=== PATIENT | female | born 1950 | race Two or more races ===

== ENCOUNTER 2021-06-26 07:45 | Outpatient (CLI) | payer MEDICARE ==
[2021-07-01] MEDS ORDERED: ASPI-992 PO (11:26)
[2021-07-02] MEDS ORDERED: NITR100C PO (09:14)
== END 2021-06-26 23:59 | disposition home or self-care (01) ==
LOC: LAB 07:45
PROVIDERS: ATTEND Specialist
DX: Z01.812 Encounter for preprocedural laboratory examination (principal); Z20.822 Contact with and (suspected) exposure to COVID-19
CPT/HCPCS: C9803; U0003

== ENCOUNTER 2021-06-30 08:11 | Inpatient (IN) | payer MEDICARE, OTHER ==
[~2021-06-30] VITALS: Ht 160 cm; Wt 63.5 kg
[2021-06-30] MEDS ORDERED: ANESTHESIA TRAY IN PYXIS 1 EA TRAY MC ONE (08:23)
[2021-06-30 08:30] VITALS: BP 143/79
[2021-06-30] MEDS ORDERED: POLYMYXIN B SULFATE 500,000 UNITS ONE (08:40)
[2021-06-30] MEDS ORDERED: BUPIVACAINE 0.5 % PF 150 MG/30 ML VIAL ONE (08:40)
[2021-06-30] MEDS ORDERED: FENTANYL PF 250MCG/5ML AMPUL ONE (08:43)
[2021-06-30] MEDS ORDERED: MIDAZOLAM HCL 2 MG/2ML VIAL ONE (08:44)
[2021-06-30] MEDS ORDERED: HYDROMORPHONE INJ 2 MG/ML DISP.SYRIN ONE (08:44)
[2021-06-30] MEDS ORDERED: FAMOTIDINE/PF INJ 20 MG/2 ML VIAL IV ONE (08:45)
[2021-06-30] MEDS ORDERED: BUPIVACAINE 0.25% 75 MG/30 ML VIAL ONE (08:45)
[2021-06-30] MEDS ORDERED: TRANEXAMIC ACID 3,000 MG in SODIUM CHLORIDE IRRIG SOLUTION 70 ML IR ONE (09:30)
[2021-06-30] MEDS ORDERED: HYDROMORPHONE 1 MG/1 ML DISP.SYRIN IM/IV/SC PRN (11:00)
[2021-06-30] MEDS ORDERED: ONDANSETRON HCL/PF 4 MG/2 ML VIAL IV PRN (11:00)
[2021-06-30] MEDS ORDERED: MENTHOL/CETYLPYRD (CEPACOL) 1 LOZ LOZENGE PO PRN (11:00)
[2021-06-30] MEDS ORDERED: CLONIDINE HCL 0.1 MG TABLET PO PRN (11:00)
[2021-06-30] MEDS ORDERED: diphenhydrAMINE HCL 25 MG CAPSULE PO PRN (11:00)
[2021-06-30] MEDS ORDERED: MAGNESIUM HYDROXIDE 30 ML UDC PO PRN (11:00)
[2021-06-30] MEDS ORDERED: HYDROCODONE/APAP 5/325MG TABLET PO PRN (11:00)
[2021-06-30] MEDS ORDERED: MAG HYDROX/AL HYDROX/SIMETH 30 ML UDC PO PRN (11:00)
[2021-06-30 12:02] LABS: BILIRUBIN,URINE NEGATIVE (NEGATIVE); COLOR,URINE YELLOW (YELLOW); LEUKOCYTE ESTERASE ,URINE NEGATIVE (NEGATIVE); NITRITE, URINE POSITIVE (NEGATIVE); PROTEIN,URINE NEGATIVE (NEGATIVE); UGLUCOSE NEGATIVE (NEGATIVE); UROBILINOGEN,URINE 0.2 EU/dL (0.2)
[2021-06-30 12:24] LABS: RBC,URINE 0-2 /HPF (0-2); WBC,URINE 0-2 /HPF (0-3)
[2021-06-30 12:25] LABS: BACTERIA,URINE Many /HPF (None Seen); SQUAMOUS EPITHELIAL CELL,UR Rare /HPF (None Seen)
[2021-06-30] MEDS ORDERED: hydrALAZINE HCL IV 20 MG VIAL ONE (12:29)
--- NOTE | 2021-06-30 13:15 | NUR ---
MS AUGER SUPERVISOR NOTE PT TRANSPORTED BY BED TO UNIT AT THIS TIME FROM OR. S/P RIGHT TOTAL KNEE ARTHROPLASTY BY DR. JOHNSON. BEDSIDE REPORT FROM RANDA FALL RN. PT IS IN STABLE CONDITION. VS BP 104/69, HR 96, T 97.6, RR 16, SPO2 99% RA. PT IS STABLE ON ROOM AIR WITH NO SOB OR S/S OF RESPIRATORY DISTRESS NOTED. PT NOTED WITH RIGHT KNEE DRESSING C/D/I. NO SIGNS OF BLEEDING NOTED. PT HAS NO C/O PAIN OR DISCOMFORT AT THIS TIME. IV ACCESS IN LEFT HAND #18, INTACT AND PATENT. SAFETY PRECAUTIONS MAINTAINED. BED IN LOWEST LOCKED POSITION, HOB ELEVATED, SIDE RAILS UP X2. CALL LIGHT AND TABLE WITHIN REACH. WILL CONTINUE TO MONITOR.
[2021-06-30] MEDS ORDERED: BISACODYL SUPP (10 MG) 10 MG/SUPP.RECT SUPP.RECT RC PRN (13:30)
[2021-06-30] MEDS ORDERED: SENNOSIDES 8.6 MG TABLET PO PRN (13:30)
[2021-06-30] MEDS ORDERED: IV LR 1000 ML 1,000 ML IV PRN (13:30)
[2021-06-30] MEDS ORDERED: ZOLPIDEM TARTRATE 5 MG TABLET PO PRN (13:30)
[2021-06-30] MEDS ORDERED: ACETAMINOPHEN 325 MG TABLET PO PRN (13:30)
[2021-06-30 14:00] VITALS: BP 118/55
[2021-06-30] MEDS ORDERED: ONDANSETRON HCL/PF 4 MG/2 ML VIAL IVP PRN (14:00)
[2021-06-30] MEDS ORDERED: hydrALAZINE HCL IV 20 MG VIAL IV PRN (14:00)
[2021-06-30] MEDS: oxyCODONE IR immediate release 5 MG PO PRN ×2 (15:02→22:45)
--- NOTE | 2021-06-30 15:02 | NUR ---
RN PAIN PT C/O ACHING PAIN IN RIGHT KNEE, RATED 6/10 ON PAIN SCALE. VSS. PER PT REQUEST, ADMINISTERED OXYCODONE IR 5MG PO Q3H PRN ORDERED. WILL CONTINUE TO MONITOR PT.
[2021-06-30 16:00] VITALS: BP 111/60
[2021-06-30] MEDS: DOCUSATE SODIUM 100 MG CAPSULE PO SCH (16:08)
--- NOTE | 2021-06-30 18:34 | NUR ---
MS RN CLOSING NOTE PT IS AWAKE IN BED. A/O X4. S/P RIGHT TOTAL KNEE ARTHROPLASTY BY DR. JOHNSON. PT IS STABLE ON ROOM AIR WITH NO SOB OR S/S OF RESPIRATORY DISTRESS NOTED. PT NOTED WITH RIGHT KNEE DRESSING C/D/I. NO SIGNS OF BLEEDING NOTED. PT HAS NO C/O PAIN OR DISCOMFORT AT THIS TIME. IV ACCESS IN LEFT HAND #18 SALINE-LOCKED, INTACT AND PATENT. ALL NEEDS HAVE BEEN MET. PAIN MANAGEMENT ADMINISTERED PER ORDER. SAFETY PRECAUTIONS MAINTAINED AT ALL TIMES. BED IN LOWEST LOCKED POSITION, HOB ELEVATED, SIDE RAILS UP X2. CALL LIGHT AND TABLE WITHIN REACH. WILL ENDORSE TO ONCOMING NURSE FOR JULIANNE.
--- NOTE | 2021-06-30 19:30 | NUR ---
RN ms opening notes Received Pt from morning nurse. Pt is laying in bed comfortably watching TV. Pt is alert and orientedX4. Respiration is normal in room air. No SOB. No s/S of distress noted. Pt is S/P R TKA with Dr. Landin. R knee dressing is C/D/I. IV site at L hand# 18 is clean, intact, flushes well and SL. Safety precautions is maintained. Bed at low position, brakes locked, side rails upX2, bed alarm is on and call light is within reach. Will continue to monitor.
[2021-06-30 20:00] VITALS: BP 101/59
--- NOTE | 2021-06-30 20:00 | NUR ---
RN ms notes Explained and demonstrate how to use incentive spirometer. Informed also the benefits. Pt demonstrate and verbalize understanding. Will continue to monitor.
[2021-06-30] MEDS: ANCEF 1 GM/50 ML D5W IV SCH (20:12)
[2021-06-30] MEDS: FAMOTIDINE (20 MG) 20 MG TABLET PO SCH (20:18)
[2021-06-30 21:00] VITALS: BP 103/54
--- NOTE | 2021-06-30 22:45 | NUR ---
RN notes Pt is complaining pain on R knee and requesting Oxycodone. Administered Oxy as ordered for pain per Pt requested. VS as follows BP 110/60, pulse 88. Safety precautions is maintained. Will continue to monitor.
[2021-07-01] MEDS: ANCEF 1 GM/50 ML D5W IV SCH (04:33)
[2021-07-01 06:27] LABS: BASOPHILS % (AUTO) 0.1 % (0.0-2.0); EOSINOPHILS % (AUTO) 0.4 % (0.0-6.0); HEMATOCRIT 35 % (33-45); HEMOGLOBIN 12.1 g/dL (11.5-14.8); LYMPHOCYTES # (AUTO) 0.7 K/uL (0.8-4.8); LYMPHOCYTES % (AUTO) 7.3 % (20.0-44.0); MEAN CORPUSCULAR HGB CONC 34 g/dl (31.0-36.0); MEAN CORPUSCULAR VOLUME 90 fL (82-100); MONOCYTES % (AUTO) 9.9 % (2.0-12.0); NEUTROPHILS # (AUTO) 8.2 K/uL (1.8-8.9); NEUTROPHILS % (AUTO) 82.3 % (43.0-81.0); PLATELET COUNT (AUTO) 243 K/uL (150-450); RED BLOOD CELL COUNT(AUTO) 3.88 MIL/uL (4.0-5.2); WHITE BLOOD COUNT (AUTO) 9.9 K/uL (4.3-11.0)
--- NOTE | 2021-07-01 06:40 | NUR ---
RN ms closing notes Pt is laying in bed comfortably watching TV. Pt is alert and orientedX4. Respiration is normal in room air. No SOB. No s/S of distress noted. Pt is S/P R TKA with Dr. Landin. R knee dressing is C/D/I. IV site at L hand# 18 is clean, intact, flushes well and SL. Safety precautions is maintained. Bed at low position, brakes locked, side rails upX2, bed alarm is on and call light is within reach. Will endorse to morning nurse for JULIANNE.
[2021-07-01 07:06] LABS: ALBUMIN 3.1 g/dL (3.4-5.0); BILIRUBIN,TOTAL 0.5 mg/dL (0.2-1.0); CALCIUM, SERUM 7.7 mg/dL (8.5-10.1); CREATININE 0.6 mg/dL (0.6-1.3); PHOSPHORUS 2.9 mg/dL (2.5-4.9); POTASSIUM 3.6 mmol/L (3.5-5.1); TOTAL PROTEIN, SERUM 6.6 g/dL (6.4-8.2)
[2021-07-01 08:00] VITALS: BP 127/66
[2021-07-01] MEDS: DOCUSATE SODIUM 100 MG CAPSULE PO SCH (08:33)
[2021-07-01] MEDS: FAMOTIDINE (20 MG) 20 MG TABLET PO SCH (08:33)
[2021-07-01] MEDS: oxyCODONE IR immediate release 5 MG PO PRN (08:34)
[2021-07-01] MEDS ORDERED: ASPIRIN 325 MG TABLET PO SCH (09:00)
[2021-07-01] MEDS ORDERED: ASPI-992 PO (11:26)
--- NOTE | 2021-07-01 13:30 | NUR ---
MS MANAGER ORANGE NOTES PATIENT IS FOR DISCHARGE PER DOCTOR SHELLI'S ORDER. FOR DISCHARGE TO HOME. [id number] GIVEN TO PATIENT AND DISCHARGE INSTRUCTION PROVIDED. PATIENT VERBALIZED UNDERSTANDING. ALL BELONGINGS CHECKED. INSTRUCTED PATIENT TO FOLLOW-UP WITH PCP 1 WEEK AFTER DISCHARGE. ASSISTED PATIENT TO THE LOBBY. PATIENT WAS PICKED UP BY SISTER AND LEFT VIA PRIVATE CAR IN STABLE CONDITION.
[2021-07-02] MEDS ORDERED: NITR100C PO (09:14)
== END 2021-07-01 13:30 | disposition home health service (06) | DRG 470 ==
LOC: DS 08:11 → MED 08:12
PROVIDERS: ADMIT Internal Medicine; ATTEND Internal Medicine
PROC: 0SRC0J9 Replacement of Right Knee Joint with Synthetic Substitute, Cemented, Open Approach (ICD-10-PCS; principal; 2021-06-30)
DX: M17.11 Unilateral primary osteoarthritis, right knee (principal); Z87.891 Personal history of nicotine dependence; Z20.822 Contact with and (suspected) exposure to COVID-19; Z90.49 Acquired absence of other specified parts of digestive tract
CPT/HCPCS: 36415; 80053-TC; 81001; 83735-TC; 84100-TC; 85025-TC; 87081-TC; 87086-TC; 87186-TC; 88305-TC; 88311-TC; 97116-TC; 97530-TC; 97760-TC; A4217; C1713; C1776; G0378; J0330; J0360; J0690; J1170; J2250; J2405; J2704; J2765; J3010; J3490; J7030; J7060; J7120